=== PATIENT | male | born 1970 | race American Indian/Alaskan Native ===

== ENCOUNTER 2017-10-30 10:15 | Emergency (ER) | payer OTHER ==
[2017-10-30 10:54] VITALS: RESP 18; TEMP 98.6; BMI 26.4
[2017-10-30] MEDS ORDERED: Naproxen 550 mg Tab PO STA (11:02)
--- NOTE | 2017-10-30 11:08 | ED PDOC ---
Arrival/HPI - General Chief Complaint: Lower Extremity Problem/Injury Time Seen by Provider: 10/30/17 10:16 Historian: Patient - History of Present Illness Narrative History of Present Illness (Text): 10/30/17 11:08 47 year old male, with past medical history of hypertension and sciatica, presents to the Emergency department complaining of right knee pain since 3 days. Patient informs worsening non-radiating discomfort localized to the bilateral aspect of the right knee prompting him to present to the Emergency department for medical evaluation. As per patient, symptoms are different from sciatica pain and has been unchanged since onset. Patient additionally informs associated lower back pain secondary to history of sciatica. Patient denies fevers, chills, headache, dizziness, chest pain, shortness of breath, dyspnea on exertion, cough, abdominal pain, nausea, vomiting, diarrhea, back pain, neck pain, or any other complaints. PMD: Holman Time/Duration: < week Symptom Onset: Gradual Symptom Course: Unchanged Quality: Aching Activities at Onset: Light Context: Home Past Medical History - Provider Review Nursing Documentation Reviewed: Yes - Tetanus Immunization Tetanus Immunization: Unknown - Cardiac Hx Cardiac Disorders: Yes Hx Hypertension: Yes - Pulmonary Hx Respiratory Disorders: No - Neurological Hx Neurological Disorder: No - HEENT Hx HEENT Disorder: No - Renal Hx Renal Disorder: Yes Hx Kidney Stones: Yes - Endocrine/Metabolic Hx Endocrine Disorders: No - Hematological/Oncological Hx Blood Disorders: No - Integumentary Hx Dermatological Disorder: No - Musculoskeletal/Rheumatological Hx Musculoskeletal Disorders: Yes Hx Arthritis: Yes Hx Back Pain: Yes Other/Comment: sciatica - Gastrointestinal Hx Gastrointestinal Disorders: No - Genitourinary/Gynecological Hx Genitourinary Disorders: No - Psychiatric Hx Psychophysiologic Disorder: No Hx Substance Use: No - Surgical History Hx Tonsillectomy: Yes - Anesthesia Hx Anesthesia: Yes Hx Anesthesia Reactions: No - Suicidal Assessment Feels Threatened In Home Enviroment: No Family/Social History - Physician Review Nursing Documentation Reviewed: Yes Family/Social History: No Known Family HX Smoking Status: Never Smoked Hx Alcohol Use: Yes (socially) Hx Substance Use: No Hx Substance Use Treatment: No Allergies/Home Meds Allergies/Adverse Reactions: Allergies No Known Allergies Allergy (Verified 11/21/14 21:17) Review of Systems - Physician Review All systems were reviewed & negative as marked: Yes - Review of Systems Constitutional: absent: Fevers Respiratory: absent: SOB, Cough Cardiovascular: absent: Chest Pain Gastrointestinal: absent: Abdominal Pain, Diarrhea, Nausea, Vomiting Musculoskeletal: Other (right knee pain). absent: Back Pain, Neck Pain Neurological: absent: Headache, Dizziness Physical Exam Vital Signs Reviewed: Yes Vital Signs Temp Pulse Resp BP Pulse Ox 10/30/17 13:33 100 10/30/17 13:31 70 18 132/85 100 10/30/17 12:30 68 18 135/87 100 10/30/17 10:15 98.6 F 70 18 137/92 H 98 Temperature: Afebrile Blood Pressure: Normal Pulse: Regular Respiratory Rate: Normal Appearance: Positive for: Well-Appearing, Non-Toxic, Comfortable Pain Distress: None Mental Status: Positive for: Alert and Oriented X 3 Medical Decision Making ED Course and Treatment: 10/30/17 11:10 Impression: 47 year old male presents to the Emergency department complaining of right knee pain since 3 days. Plan: -- Naproxen -- Flexeril -- X-ray of Right Knee -- Reassess and disposition Prior Visits: Notes and results from previous visits were reviewed. Progress Notes: 10/30/17 11:00 EKG: Ordered, reviewed, and independently interpreted the EKG. Rate : 77 BPM Rhythm : NSR Interpretation : No ST-segment elevations or depressions, no T-wave inversions, normal intervals. 10/30/17 13:05 X-ray of right knee reviewed, shows normal radiographs. 10/30/17 14:33 xr neg dvt study neg advise outp tfu. 10/30/17 14:34 no saddle anestheisa, pt robertin iam. neuro intact. advise outpt fu - RAD Interpretation Radiology Orders: 10/30/17 11:02 KNEE RIGHT 2 VIEWS (AP & LAT) [RAD] Stat 10/30/17 11:51 DUPLEX LOWER EXTRM VEIN RIGHT [US] Stat Telesales Specialist: Radiologist - Medication Orders Current Medication Orders: Discontinued Medications Cyclobenzaprine HCl (Flexeril) 10 mg PO STAT STA Stop: 10/30/17 11:03 Last Admin: 10/30/17 11:09 Dose: 10 mg Naproxen (Anaprox Ds) 550 mg PO STAT STA Stop: 10/30/17 11:03 Last Admin: 10/30/17 11:09 Dose: 550 mg - Scribe Statement The provider has reviewed the documentation as recorded by the Scribe Isa Calloway. All medical record entries made by the Jaskaranibe were at my direction and personally dictated by me. I have reviewed the chart and agree that the record accurately reflects my personal performance of the history, physical exam, medical decision making, and the department course for this patient. I have also personally directed, reviewed, and agree with the discharge instructions and disposition. Disposition/Present on Arrival - Present on Arrival Any Indicators Present on Arrival: No History of DVT/PE: No History of Uncontrolled Diabetes: No Urinary Catheter: No History of Decub. Ulcer: No History Surgical Site Infection Following: None - Disposition Have Diagnosis and Disposition been Completed?: Yes Diagnosis: Knee pain, Chronic back pain Disposition: HOME/ ROUTINE Disposition Time: 01:00 Condition: STABLE Discharge Instructions (ExitCare): Chronic Pain (DC), Knee Pain (DC) Additional Instructions: please follow up with your doctor/clinic and specialist. return to er with worsening symptoms or concerns Prescriptions: Cyclobenzaprine [Cyclobenzaprine HCl] 10 mg PO DAILY PRN #10 tab PRN Reason: Muscle Spasm Naproxen 500 mg PO BID PRN #14 tab PRN Reason: Pain, Mild (1-3) Referrals: [facility] [Outside] - Follow up with primary [facility] [place] [Outside] - Follow up with primary Diogo Haro DO [Staff Provider] - Follow up with primary Koko Holman MD [Primary Care Provider] - Follow up with primary Forms: [employer] ([place])
[2017-10-30 12:41] VITALS: O2SAT 100
--- NOTE | 2017-10-30 12:53 | RAD ---
Date of service: 10/30/2017 PROCEDURE: Right Knee Radiographs. HISTORY: Right knee pain COMPARISON: None. FINDINGS: BONES: Normal. No fracture. JOINTS: Normal. No osteoarthritis. JOINT EFFUSION: None. OTHER FINDINGS: None. IMPRESSION: Normal radiographs of the right knee.
[2017-10-30 13:33] VITALS: BP 132/85; PULSE 70
--- NOTE | 2017-10-30 18:45 | US ---
PROCEDURE: Right lower extremity venous US HISTORY: Leg pain and swelling. Evaluate for DVT. PHYSICIAN(S): Andrea Hester M.D. TECHNIQUE: Duplex sonography and color-flow Doppler with graded compression were used to evaluate the deep venous system of the right lower extremity. FINDINGS: The visualized deep venous system of the right lower extremity is sonographically normal and compressible. Normal waveforms and augmentation are seen. There is no sonographic evidence for deep venous thrombosis in the visualized segments of the right lower extremity. IMPRESSION: 1. No sonographic evidence for deep venous thrombosis in the visualized segments of the right lower extremity.
== END 2017-10-30 13:33 | disposition home or self-care (01) ==
LOC: ED 10:15
DX: M25.561 Pain in right knee (principal); M54.9 Dorsalgia, unspecified; G89.29 Other chronic pain; I10 Essential (primary) hypertension

== ENCOUNTER 2018-02-14 12:21 | Emergency (ER) | payer OTHER ==
[2018-02-14 12:43] VITALS: RESP 18; BMI 25.1
--- NOTE | 2018-02-14 13:26 | ED PDOC ---
Arrival/HPI - General Historian: Patient, Family - History of Present Illness Narrative History of Present Illness (Text): 02/14/18 13:24 Patient is a 47 year old male with past medical history of chronic back pain, sciatica, herniated discs who presents to the emergency room for worsening low back pain. Patient states that the back pain has been worsening for the past few days. Today when he woke up, the pain was so severe he was unable to move or walk which prompted the ED visit. States that pain is located on the right lower back and is constant in nature. Denies any radiation. He takes Flexeril and Ibuprofen at home with minimal relief. Denies any numbness/tingling, saddle anesthesia, loss of bowel or bladder function. Patient ambulates with a cane on occasion. PMD: Dr Holman Allergies: NKDA Medications: Flexeril 5mg PO BID prn, Ibuprofen 800mg prn Medical History: Renal stones, chronic low back pain, sciatica Surgical History: Facet blocks Social History: Denies alcohol, tobacco, drug use Family History: Denies Time/Duration: 24 hours Symptom Onset: Gradual Symptom Course: Worsening Severity Level: 10, Moderate Activities at Onset: Rest <Bertha Boyd - Last Filed: 02/14/18 17:19> <Mckayla Arboleda - Last Filed: 02/14/18 18:39> - General Chief Complaint: Back Pain Time Seen by Provider: 02/14/18 13:20 Past Medical History - Provider Review Nursing Documentation Reviewed: Yes - Infectious Disease Hx of Infectious Diseases: None - Tetanus Immunization Tetanus Immunization: Unknown - Cardiac Hx Cardiac Disorders: Yes Hx Hypertension: Yes - Pulmonary Hx Respiratory Disorders: No - Neurological Hx Neurological Disorder: No - HEENT Hx HEENT Disorder: No - Renal Hx Renal Disorder: Yes Hx Kidney Stones: Yes - Endocrine/Metabolic Hx Endocrine Disorders: No - Hematological/Oncological Hx Blood Disorders: No - Integumentary Hx Dermatological Disorder: No - Musculoskeletal/Rheumatological Hx Musculoskeletal Disorders: Yes Hx Arthritis: Yes Hx Back Pain: Yes Other/Comment: sciatica - Gastrointestinal Hx Gastrointestinal Disorders: No - Genitourinary/Gynecological Hx Genitourinary Disorders: No - Psychiatric Hx Psychophysiologic Disorder: No Hx Substance Use: No - Surgical History Hx Tonsillectomy: Yes - Anesthesia Hx Anesthesia: Yes Hx Anesthesia Reactions: No - Suicidal Assessment Feels Threatened In Home Enviroment: No <Bertha Boyd - Last Filed: 02/14/18 17:19> Family/Social History - Physician Review Nursing Documentation Reviewed: Yes Family/Social History: No Known Family HX Smoking Status: Never Smoked Hx Alcohol Use: Yes (socially) Hx Substance Use: No Hx Substance Use Treatment: No <Bertha Boyd - Last Filed: 02/14/18 17:19> Allergies/Home Meds <Bertha Boyd - Last Filed: 02/14/18 17:19> <Mckayla Arboleda - Last Filed: 02/14/18 18:39> Allergies/Adverse Reactions: Allergies No Known Allergies Allergy (Verified 02/14/18 12:43) Home Medications: Home Meds Medication Instructions Recorded Confirmed Cyclobenzaprine HCl [Flexeril] 5 mg PO BID PRN 02/14/18 02/14/18 Diclofenac Sodium [Voltaren] 75 mg PO DAILY 02/14/18 02/14/18 Losartan [Cozaar] 12.5 mg PO DAILY 02/14/18 02/14/18 Review of Systems - Physician Review All systems were reviewed & negative as marked: Yes - Review of Systems Constitutional: Normal. absent: Fatigue, Fevers Eyes: Normal. absent: Vision Changes ENT: Normal. absent: Hearing Changes Respiratory: Normal. absent: SOB, Cough Cardiovascular: Normal. absent: Chest Pain, Palpitations, Calf Pain Gastrointestinal: Normal. absent: Abdominal Pain, Constipation, Nausea, Vomiting Genitourinary Male: Normal. absent: Dysuria, Urinary Output Changes Musculoskeletal: Back Pain Skin: absent: Rash Neurological: Normal. absent: Headache, Dizziness <Bertha oByd - Last Filed: 02/14/18 17:19> Physical Exam Vital Signs Reviewed: Yes Vital Signs Temp Pulse Resp BP Pulse Ox 02/14/18 12:42 98.3 F 54 L 18 137/97 H 97 Temperature: Afebrile Blood Pressure: Hypertensive Pulse: Bradycardic Appearance: Positive for: Well-Appearing, Uncomfortable Pain Distress: Moderate Mental Status: Positive for: Alert and Oriented X 3 - Systems Exam Head: Present: Atraumatic, Normocephalic Pupils: Present: PERRL Extroacular Muscles: Present: EOMI Conjunctiva: Present: Normal Mouth: Present: Moist Mucous Membranes Neck: Present: Normal Range of Motion Respiratory/Chest: Present: Clear to Auscultation, Good Air Exchange. No: Respiratory Distress, Accessory Muscle Use Cardiovascular: Present: Regular Rate and Rhythm, Normal S1, S2 Abdomen: Present: Normal Bowel Sounds. No: Tenderness, Distention Back: Present: Paraspinal Tenderness, Pain with Leg Raise, Other (right paraspinal tenderness in lumbar region, reduced ROM secondary to pain) Upper Extremity: Present: Normal Inspection Lower Extremity: Present: Normal Inspection, Neurovascularly Intact Neurological: Present: CN II-XII Intact Skin: Present: Warm, Dry, Normal Color Psychiatric: Present: Alert, Oriented x 3 <Bertha Boyd - Last Filed: 02/14/18 17:19> Vital Signs Temp Pulse Resp BP Pulse Ox 02/14/18 15:51 98.4 F 52 L 18 143/87 99 02/14/18 12:42 98.3 F 54 L 18 137/97 H 97 <Mckayla Arboleda - Last Filed: 02/14/18 18:39> Medical Decision Making ED Course and Treatment: 02/14/18 13:31 Patient seen and examined at bedside. Patient reports having worsening low back pain. On exam, positive straight leg test, spinal tenderness, reduced ROM secondary to pain. We will order Lumbar and Thoracic xrays, Toradol 60mg IM and Flexeril 10mg PO x 1. 02/14/18 16:17 Imaging results reviewed. Patient states that he is feeling a little better. Patient states that he does have an appointment with Dr Holman his primary tomorrow. Will discharge patient home at this time. - RAD Interpretation Narrative RAD Interpretations (Text): 02/14/18 17:16 Lumbar X ray: Unremarkable radiographs of the lumbar spine Thoracic X ray: Normal radiographs of the thoracic spine. Process Tech: Radiologist <Bertha Boyd - Last Filed: 02/14/18 17:19> ED Course and Treatment: 02/14/18 13:31 47 year old male presents to the Emergency department complaining of lower back pain. Patient denies any recent injuries or trauma. In agreement with resident note which contains more details about the patient. Patient seen and evaluated with resident. Came up with plan and treatment together. - RAD Interpretation Radiology Orders: 02/14/18 13:29 LS SPINE AP/LAT [RAD] Stat 02/14/18 13:30 THORACIC SPINE [DORSAL (THORACIC) SPINE] [RAD] Stat - Medication Orders Current Medication Orders: Discontinued Medications Cyclobenzaprine HCl (Flexeril) 10 mg PO STAT STA Stop: 02/14/18 13:28 Last Admin: 02/14/18 13:45 Dose: 10 mg Ketorolac Tromethamine (Toradol) 60 mg IM STAT STA Stop: 02/14/18 13:27 Last Admin: 02/14/18 13:44 Dose: 60 mg [facility] Pain Assessment Document 02/14/18 13:44 LA (Rec: 02/14/18 13:45 LA [id number]) Pain Reassessment Is this a pain reassessment? No Sleep Is patient sleeping during reassessment? No Presence of Pain Presence of Pain Yes Pain Scale Used Protocol: PSCALES Pain Scale Used Numeric Location Pain Location Body Site Back Description Intensity of Pain at present 8 IM Administration Charges Document 02/14/18 13:44 LA (Rec: 02/14/18 13:45 LA [id number]) Injection Site MAR Injection Site Right Gluteus Jed Charges for Administration # of IM Administrations 1 Re-Assess: MAR Pain Assessment Document 02/14/18 14:44 LA (Rec: 02/14/18 15:30 LA [id number]) Pain Reassessment Is this a pain reassessment? Yes Sleep Is patient sleeping during reassessment? Yes <Mckayla Arboleda - Last Filed: 02/14/18 18:39> - PA / EMAIL CAMPAIGN SPECIALIST / Resident Statement MD/ has reviewed & agrees with the documentation as recorded. MD/DO has examined the patient and agrees with the treatment plan. - Scribe Statement The provider has reviewed the documentation as recorded by the Scribe Isa Calloway. All medical record entries made by the Jaskaranibcherrie were at my direction and personally dictated by me. I have reviewed the chart and agree that the record accurately reflects my personal performance of the history, physical exam, medical decision making, and the department course for this patient. I have also personally directed, reviewed, and agree with the discharge instructions and disposition. <Mckayla Arboleda - Last Filed: 02/14/18 18:39> Disposition/Present on Arrival - Present on Arrival Any Indicators Present on Arrival: No History of DVT/PE: No History of Uncontrolled Diabetes: No Urinary Catheter: No History of Decub. Ulcer: No History Surgical Site Infection Following: None - Disposition Have Diagnosis and Disposition been Completed?: Yes Disposition Time: 16:18 Patient Plan: Discharge <Bertha Boyd - Last Filed: 02/14/18 17:19> <Mckayla Arboleda - Last Filed: 02/14/18 18:39> - Disposition Diagnosis: Low back pain Disposition: HOME/ ROUTINE Condition: FAIR Discharge Instructions (ExitCare): Low Back Pain in Adults, Chronic Pain (DC) Additional Instructions: - Please continue home medications as prescribed - Please follow up with Dr Holman tomorrow as scheduled - If any worsening of symptoms, return to the emergency department Referrals: Koko Holman MD [Primary Care Provider] - Follow up with primary Forms: [employer] ([place])
--- NOTE | 2018-02-14 15:24 | RAD ---
Date of service: 02/14/2018 HISTORY: acute back pain COMPARISON: No prior. FINDINGS: BONES: Alignment maintained. No fracture. DISC SPACES: Normal. SOFT TISSUES: Normal. OTHER FINDINGS: None. IMPRESSION: Normal radiographs of the thoracic spine.
--- NOTE | 2018-02-14 15:25 | RAD ---
Date of service: 02/14/2018 PROCEDURE: Radiographs of the Lumbar Spine. HISTORY: acute low back pain COMPARISON: No prior. FINDINGS: BONES: Normal alignment. No listhesis. No fracture. DISC SPACES: Unremarkable. OTHER FINDINGS: None. IMPRESSION: Unremarkable radiographs of the lumbar spine.
[2018-02-14 15:52] VITALS: BP 143/87; PULSE 52; TEMP 98.4; O2SAT 99
== END 2018-02-14 16:24 | disposition home or self-care (01) ==
LOC: ED 12:21
DX: M54.5 Low back pain (principal)
CPT/HCPCS: 72070; 72100; 96372; 99283; J1885